=== PATIENT | male | born 1990 | race Caucasian/White ===

== ENCOUNTER 2017-03-18 17:12 | Emergency (ER) | payer SELFPAY ==
[~2017-03-18] VITALS: Ht 182.9 cm; Wt 70.0 kg
[2017-03-18 17:13] VITALS: BP 120/67; PULSE 72; RESP 20; TEMP 99.3; O2SAT 99
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
[2017-03-18] MEDS ORDERED: KETOROLAC TROMETHAMINE 60 MG/2 ML (IM) VIAL IM ONE (17:45)
[2017-03-18] MEDS ORDERED: ORPHENADRINE INJ 60 MG/2 ML AMP IM ONE (17:45)
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
[2017-03-18] MEDS ORDERED: NAPR500T PO (18:45)
[2017-03-18] MEDS ORDERED: BACL10TA PO (18:45)
== END 2017-03-18 19:02 | disposition home or self-care (01) ==
LOC: NEPK 17:12
DX: S39.012A Strain of muscle, fascia and tendon of lower back, initial encounter (principal); S30.0XXA Contusion of lower back and pelvis, initial encounter; Y08.09XA Assault by strike by other specified type of sport equipment, initial encounter
CPT/HCPCS: 72131; 96372; 99285; J1885; J2360